=== PATIENT | male | born 1970 | race Caucasian/White ===

== ENCOUNTER 2017-09-24 20:56 | Emergency (ER) | payer BC ==
[~2017-09-24] VITALS: Ht 180.3 cm; Wt 93.0 kg
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
[2017-09-24 21:02] VITALS: BP 141/86
[2017-09-24 22:15] VITALS: BP 142/85
[2017-09-24] MEDS ORDERED: oxyCODONE HCL/Acetaminophen 5/325mg ORAL ONE (22:15)
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
== END 2017-09-24 22:25 | disposition home or self-care (01) ==
LOC: EDBD 20:56 → MERGE 21:03 → EMR 21:03
DX: S13.4XXA Sprain of ligaments of cervical spine, initial encounter (principal); V47.6XXA Car passenger injured in collision with fixed or stationary object in traffic accident, initial encounter; Y92.9 Unspecified place or not applicable; M50.322 Other cervical disc degeneration at C5-C6 level
CPT/HCPCS: 72125; 99284